=== PATIENT | female | born 1990 | race Caucasian/White ===

== ENCOUNTER 2018-06-25 00:46 | Emergency (ER) | payer SELFPAY ==
[2018-06-25] MEDS ORDERED: TETRACAINE HCL 0.5% OPH SOLN 4 ML ONE (02:44)
[2018-06-25] MEDS ORDERED: OXYCODONE-ACETAMINOPHEN 5-325 MG TABLET PO ONE (03:15)
[2018-06-25] MEDS ORDERED: ONDANSETRON ODT 4 MG TAB (6 TAB/ER DISP) PO PRN (03:15)
[2018-06-25] MEDS ORDERED: HYDROCODONE/ACETAMINOPHEN 5-325 MG (6 TAB/ER DISP) PO PRN (03:15)
[2018-06-25] MEDS ORDERED: PROMETHAZINE HCL 25 MG TABLET PO ONE (03:15)
[2018-06-25] MEDS ORDERED: BESIFLOXACIN HCL 0.6% OPH SUSP 5 ML BOTTLE OD ONE (03:15)
--- NOTE | 2018-06-25 03:19 | ER Document Report ---
ED Eye Complaint - General Chief Complaint: Eye Pain Stated Complaint: EYE PAIN Time Seen by Provider: 06/25/18 03:00 Primary Care Provider: EH HSU MD [ACTIVE STAFF] - Follow up tomorrow Notes: Patient is a 28-year-old female that comes emergency department for chief complaint of pain, irritation, and redness to the right eye. She states symptoms were noticeable this morning and is significantly worsened throughout the day. She admits to wearing colored contacts this week, however she does not usually wear contacts or visual correction. She denies visual loss. She states she has had some congestion and intermittent ear discomfort for a while. She denies fever/chills. TRAVEL OUTSIDE OF THE [place] IN LAST 30 DAYS: No - Related Data Allergies/Adverse Reactions: amoxicillin trihydrate [From Augmentin] Allergy (Mild, Verified 06/25/18 00:50) VOMITING Potassium Clavulanate * [From Augmentin] Allergy (Mild, Verified 06/25/18 00:50) VOMITING Past Medical History - General Information source: Patient - Social History Smoking Status: Never Smoker Frequency of alcohol use: None Lives with: Family Family History: Reviewed & Not Pertinent - Medical History Medical History: Negative Past Surgical History: Reports: Hx Oral Surgery, Hx Tonsillectomy - Immunizations Hx Diphtheria, Pertussis, Tetanus Vaccination: Yes Review of Systems - Review of Systems Constitutional: No symptoms reported EENT: See HPI Cardiovascular: No symptoms reported Respiratory: No symptoms reported Gastrointestinal: No symptoms reported Genitourinary: No symptoms reported Female Genitourinary: No symptoms reported Musculoskeletal: No symptoms reported Skin: No symptoms reported Hematologic/Lymphatic: No symptoms reported Neurological/Psychological: No symptoms reported Physical Exam - Notes Notes: GENERAL: Patient with a hand of her right eye, appears uncomfortable HEAD: Normocephalic, atraumatic. EYES: Pupils equal, round, and reactive to light. Extraocular movements intact. Right sclera is very injected. Minimal amount of yellowish and clear discharge.. No superficial foreign body, fluorescein uptake at the 5 o'clock position in a circular arrangement, negative Agapito sign. ENT: Oral mucosa moist, tongue midline. Oropharynx unremarkable. Airway patent. Nares patent, no nasal septal hematoma, TM's intact. NECK: Full range of motion. Supple. Trachea midline. LUNGS: Clear to auscultation bilaterally, no wheezes, rales, or rhonchi. No respiratory distress. HEART: Regular rate and rhythm. No murmur ABDOMEN: Soft, non-tender. Non-distended. Bowel sounds present in all 4 quadrants. GENITOURINARY: Deferred EXTREMITIES: Moves all 4 extremities spontaneously. No edema, normal radial and dorsalis pedis pulses bilaterally. No cyanosis. BACK: no cervical, thoracic, lumbar midline tenderness. No saddle anesthesia, normal distal neurovascular exam. NEUROLOGICAL: Alert and oriented x3. Normal speech. [cranial nerves II through XII grossly intact]. PSYCH: Normal affect, normal mood. SKIN: Warm, dry, normal turgor. No rashes or lesions noted. Course - Re-evaluation Re-evalutation: Examination shows fluorescein uptake at approximately the 5 o'clock position in the right cornea, very injected conjunctiva, small amount of discharge. Appears to be a corneal ulcer. When given tetracaine patient's symptoms resolved. Placed on Besivance for Pseudomonas coverage because of the recent contact use, patient states she will closely follow-up with ophthalmology referral listed, discussed return precautions. Patient states understanding and agreement. Discharge - Discharge Clinical Impression: Acute right eye pain Condition: Stable Disposition: HOME, SELF-CARE Additional Instructions: Your examination is consistent with conjunctivitis and a corneal ulcer. Take Besivance as prescribed (1 drop, 3 times daily, for 7 days), see ophthalmology tomorrow, call tomorrow morning for the close follow-up. Take provided nausea/pain medications if needed. Return if you worsen including loss of vision, swelling, fever, or any other concerning or worsening symptoms. Forms: Return to Work Referrals: EH HSU MD [ACTIVE STAFF] - Follow up tomorrow
[2018-06-25] MEDS ORDERED: BESIFLOXACIN HCL 0.6% OPH SUSP 5 ML BOTTLE ONE (03:39)
== END 2018-06-25 03:50 | disposition home or self-care (01) ==
LOC: ER 00:46
DX: H57.11 Ocular pain, right eye (principal); R09.81 Nasal congestion
CPT/HCPCS: 99283; J3490